=== PATIENT | female | born 1970 | race Caucasian/White ===

== ENCOUNTER → 2017-12-01 | Outpatient (CLI) | payer OTHER ==
[~2017-12-01] MED LIST: ALLE12TA PO; ALPR0.5T99 PO; BIOT10004 PO; CYCL-36 PO; DARV PO; ESTR1 PO; LEXA20TA PO; REST30CA PO; TAB-TAB PO; ZAFI1TAB2 PO
--- NOTE | 2017-12-06 09:10 | RSPPFT ---
DATE OF PROCEDURE: 12/01/17 COMMENTS: Spirometry shows FVC of 2.38 at 70% of predicted, FEV1 of 1.7 at 63%, FEV1/FVC ratio is normal. Flow is decreased at FEF 25, FEF 50, FEF 75 and FEF 25-75.There is no response after bronchodilator treatment. Lung volumes show residual volume is normal. TLC is normal. Diffusion capacity is normal. Flow volume loop indicates an obstructive pattern. IMPRESSION: 1. Mild small airways obstructive lung disease. 2. No response after bronchodilator treatment. 3. Normal lung volumes. 4. Normal diffusion capacity.
== END ==
LOC: PHRSP 08:41
PROVIDERS: ATTEND Specialist
DX: R06.00 Dyspnea, unspecified (principal); J44.9 Chronic obstructive pulmonary disease, unspecified; R09.02 Hypoxemia
CPT/HCPCS: 94060; 94729